=== PATIENT | female | born 1975 | race Hispanic/Latino ===

== ENCOUNTER 2017-09-10 10:07 | Observation (INO) | payer BC ==
[~2017-09-10] VITALS: Ht 162.6 cm; Wt 143.6 kg
[~2017-09-10 10:07] MED LIST: LABETALOL HCL100 MG PO
[2017-09-10] MEDS ORDERED: MORPHINE SULFATE 2 MG/ML SYR IV STA ×3 (10:37→15:51)
[2017-09-10] MEDS ORDERED: ONDANSETRON HCL INJ 2 MG/ML VIAL IV STA ×3 (10:37→16:01)
[2017-09-10] MEDS ORDERED: MULTIVITAMINS- 12 INJECTION 10 ML, FOLIC ACID MDV 5 MG, THIAMINE HCL INJ 500 MG in SODI... IV ONE (10:45)
[2017-09-10] MEDS ORDERED: DIATRIZOATE MEGL/DIATRIZOA SOD 30 ML BTL PO ONE (11:22)
[2017-09-10] MEDS ORDERED: MULTIVITAMINS- 12 INJECTION 10 ML, FOLIC ACID MDV 5 MG, THIAMINE HCL INJ 100 MG in SODI... IV ONE (11:30)
[2017-09-10 11:44] LABS: BASOPHILS % 0.4 % (0.0-1.0); EOSINOPHILS # (AUTO) 0.1 (0.0-0.4); EOSINOPHILS % 1.4 % (0.0-6.0); HEMATOCRIT 39.1 % (34.2-44.1); HEMOGLOBIN 12.5 g/dL (12.0-16.0); LYMPHOCYTES % 19.7 % (18.0-39.1); MEAN CORPUSCULAR HEMOGLOBIN 25.7 pg (28-32); MEAN CORPUSCULAR VOLUME 80.3 fL (81-99); MONOCYTES # (AUTO) 0.4 (0.2-0.8); MONOCYTES % 7.8 % (4.4-11.3); NEUTROPHILS # (AUTO) 3.5 (2.1-6.9); NEUTROPHILS % 70.3 % (38.7-80.0); PLATELET COUNT 234 x10e3/uL (140-360); RED BLOOD COUNT 4.87 x10e6/uL (3.6-5.1); RED CELL DISTRIBUTION WIDTH 14.4 % (11.7-14.4)
[2017-09-10 11:55] LABS: INR 1.06
[2017-09-10 12:03] LABS: ALANINE AMINOTRANSFERASE 21 IU/L (0-55); ALBUMIN 3.8 g/dL (3.5-5.0); ALKALINE PHOSPHATASE 76 IU/L (40-150); AMYLASE 22 U/L (25-125); ANION GAP 14.8 mmol/L (8-16); BLOOD UREA NITROGEN 8 mg/dL (7-26); BUN/CREATININE RATIO 13 (6-25); CALCIUM 8.8 mg/dL (8.4-10.2); CARBON DIOXIDE 23 mmol/L (22-29); CHLORIDE 101 mmol/L (98-107); CREATININE, SERUM 0.61 mg/dL (0.57-1.11); EST GLOMERULAR FILTRATION RATE > 60 ML/MIN (60-); GLUCOSE 160 mg/dL (74-118); LIPASE 19 U/L (8-78); POTASSIUM 3.8 mmol/L (3.5-5.1); SODIUM 135 mmol/L (136-145)
[2017-09-10 12:44] LABS: BILIRUBIN,URINE NEGATIVE (NEGATIVE); CLARITY,URINE CLEAR (CLEAR); COLOR,URINE YELLOW (YELLOW); KETONES,URINE NEGATIVE (NEGATIVE); LEUKOCYTE ESTERASE ,URINE 1+ (NEGATIVE); NITRITE,URINE NEGATIVE (NEGATIVE); PROTEIN,URINE DIPSTICK NEGATIVE (NEGATIVE); URINE UROBILINOGEN 0.2 mg/dL (0.2 - 1)
[2017-09-10 13:03] LABS: BACTERIA,URINE RARE /HPF; WBC,URINE (MAN) 0-5 /HPF (0-5)
[2017-09-10 13:04] LABS: EPITHELIAL CELLS,URINE FEW /LPF; TRICHOMONAS,URINE FEW
[2017-09-10] MEDS ORDERED: SODIUM CHLORIDE 0.9% 50ML 50 ML ONE (14:55)
[2017-09-10] MEDS ORDERED: IOPAMIDOL 370 MG/ML 200 ML INFUS..BTL INJ ONE (14:57)
--- NOTE | 2017-09-10 15:15 | Diagnostic Imaging Report ---
PROCEDURE:CT ABDOMEN AND PELVIS WITH CONTRAST COMPARISON:None. INDICATIONS:ABDOMEN PAIN, VOMITING TECHNIQUE: Multidetector CT scanning of the abdomen and pelvis was performed after the administration of 100 cc of nonionic contrast. Coronal and sagittal reformations were obtained. Routine protocol performed. DLP: 1253.88 mGY-cm FINDINGS: Lung bases: A mild air trapping. No consolidation or mass. Visualized portion of the mediastinum is normal. Liver: Mildly decreased in attenuation without mass. Biliary: Gallbladder is absent. No biliary ductal dilatation. Spleen: Normal in size and attenuation without mass. Pancreas: Mild fatty atrophy. No mass or ductal dilatation. Adrenal Glands: No mass. Kidneys: Symmetric enhancement. No mass or hydronephrosis. Gastrointestinal: There postoperative changes of the stomach suggestive of bariatric surgery. The stomach is collapsed. Small bowel is normal in diameter with normal wall thickness. There is enteric contrast in the distal small bowel and large bowel. There a few diverticula in the descending colon without associated inflammation. A supraumbilical hernia has an aperture of 3 cm and contains a knuckle of transverse colon that is distended with air. There is also fat within this hernia. There is no fluid in the hernia sac. The appendix is opacified with enteric contrast and is normal. Vasculature: Aorta and IVC are normal in diameter. Peritoneum/Retroperitoneum: No free fluid, fluid collection, or free air. Bladder: Normal. Reproductive organs: The uterus is present and normal in morphology. There are multiple nabothian cysts in the cervix. There are no adnexal masses. Lymph nodes: No enlarged abdominal, pelvic, or inguinal lymph nodes. Musculoskeletal: There are no focal osseous lesions. Mild degenerative changes of the thoracolumbar spine are present. Soft tissues: Fat-containing umbilical hernia has an aperture a 17 mm. A fat containing hernia in the lower intra-abdominal wall may be incisional and has an aperture 16 mm. No fluid in the hernia sacs. IMPRESSION: 1. Ventral supraumbilical hernia containing fat and transverse colon. There is no evidence of incarceration or bowel obstruction. 2. Postoperative changes of the stomach without complication. 3. Mild hepatic steatosis. Pancreas lipomatosis. 4. Cholecystectomy. Normal biliary tree. 5. Diverticulosis coli. No bowel inflammation. Normal appendix. Dictated by: Lupe Savage M.D. on 09/10/2017 at 15:14 Electronically approved by: Lupe Savage M.D. on 09/10/2017 at 15:14
[2017-09-10] MEDS ORDERED: AZITHROMYCIN 250 MG TAB PO STA (16:01)
[2017-09-10] MEDS ORDERED: CEFTRIAXONE SOD 1 GM VIAL IM ONE (16:15)
[2017-09-10] MEDS ORDERED: METRONIDAZOLE 500 MG TAB PO NR (16:30)
[2017-09-10] MEDS: METRONIDAZOLE 250 MG TAB PO ONE ×2 (16:34→16:41)
[2017-09-10] MEDS ORDERED: HYDROCHLOROTHIA25 MG PO (17:52)
[2017-09-10] MEDS ORDERED: CITALOPRAM HBR20 MG PO (17:52)
--- OUTSIDE RECORDS SUMMARY | 2017-09-10 18:56 | XMS REPORT ---
Author Author [facility] Address Unknown Phone Unavailable Care Team Providers Care Maintenance Electrician Name Role Phone SHYLA PEÑA Unavailable Unavailable Problems This patient has no known problems. Allergies, Adverse Reactions, Alerts This patient has no known allergies or adverse reactions. Medications This patient has no known medications. Results Test Description Test Time Test Comments Text Results Atomic Results Result Comments CT ABDOMEN/PELVIS W [place] [address] Patient Name: OMARI WARNER MR #: [id number] : 1975 Age/Sex: 42/F Req #: [id number] Adm Physician: Ordered by: ANGELIA HILL ROR ENGINEER Report #: [id number] Location: ER Room/Bed: Procedure: [id number] CT/CT ABDOMEN/PELVIS W Exam Date: 09/10/17 Exam Time: 1425 REPORT STATUS: Signed PROCEDURE: CT ABDOMEN AND PELVIS WITH CONTRAST COMPARISON: None. INDICATIONS: ABDOMEN PAIN, VOMITING TECHNIQUE: Multidetector CT scanning of the abdomen and pelvis was performed after the administration of 100 cc of nonionic contrast. Coronal and sagittal reformations were obtained. Routine protocol performed. DLP: 1253.88 mGY-cm FINDINGS: Lung bases: A mild air trapping. No consolidation or mass. Visualized portion of the mediastinum is normal. Liver: Mildly decreased in attenuation without mass. Biliary: Gallbladder is absent. No biliary ductal dilatation. Spleen: Normal in size and attenuation without mass. Pancreas: Mild fatty atrophy. No mass or ductal dilatation. Adrenal Glands: No mass. Kidneys: Symmetric enhancement. No mass or hydronephrosis. Gastrointestinal: There postoperative changes of the stomach suggestive of bariatric surgery. The stomach is collapsed. Small bowel is normal in diameter with normal wall thickness. There is enteric contrast in the distal small bowel and large bowel. There a few diverticula in the descending colon without associated inflammation. A supraumbilical hernia has an aperture of 3 cm and contains a knuckle of transverse colon that is distended with air. There is also fat within this hernia. There is no fluid in the hernia sac. The appendix is opacified with enteric contrast and is normal. Vasculature: Aorta and IVC are normal in diameter. Peritoneum/ Retroperitoneum: No free fluid, fluid collection, or free air. Bladder : Normal. Reproductive organs: The uterus is present and normal in morphology. There are multiple nabothian cysts in the cervix. There are no adnexal masses. Lymph nodes: No enlarged abdominal, pelvic, or inguinal lymph nodes. Musculoskeletal: There are no focal osseous lesions. Mild degenerative changes of the thoracolumbar spine are present. Soft tissues: Fat-containing umbilical hernia has an aperture a 17 mm. A fat containing hernia in the lower intra-abdominal wall may be incisional and has an aperture 16 mm. No fluid in the hernia sacs. IMPRESSION: 1. Ventral supraumbilical hernia containing fat and transverse colon. There is no evidence of incarceration or bowel obstruction. 2. Postoperative changes of the stomach without complication. 3. Mild hepatic steatosis. Pancreas lipomatosis. 4. Cholecystectomy. Normal biliary tree. 5. Diverticulosis coli. No bowel inflammation. Normal appendix. Dictated by: Durga Savage M.D. on 09/10/2017 at 15:14 Electronically approved by: Durga Savage M.D. on 09/10/2017 at 15:14 Dictated By: DURGA SAVAGE MD [id number] Transcribed By: CHRISTIAN on 09/10/17 1514 COPY TO: ANGELIA HILL NP
[2017-09-10] MEDS: SODIUM CHLORIDE 0.9% 1000ML 1,000 ML IV SCH ×2 (19:14→20:40)
[2017-09-10 20:30] VITALS: BP 134/60
[2017-09-10] MEDS: MORPHINE SULFATE 2 MG/ML SYR IV PRN (20:40)
[2017-09-10] MEDS: ONDANSETRON HCL INJ 2 MG/ML VIAL IV PRN (20:40)
[2017-09-10 21:00] VITALS: BP 134/60
[2017-09-11] VITALS: BP 142/66
[2017-09-11] MEDS ORDERED: METRONIDAZOLE 500MG/NS 100ML IV SCH
[2017-09-11] MEDS: METRONIDAZOLE 500MG/NS 100ML 100 ML IV SCH ×4 (00:13→17:49)
[2017-09-11] MEDS: ONDANSETRON HCL INJ 2 MG/ML VIAL IV PRN ×5 (00:40→19:41)
[2017-09-11] MEDS: MORPHINE SULFATE 2 MG/ML SYR IV PRN ×5 (00:40→19:40)
[2017-09-11] MEDS: SODIUM CHLORIDE 0.9% 1000ML 1,000 ML IV SCH ×4 (01:20→20:10)
[2017-09-11 04:00] VITALS: BP 134/62
[2017-09-11 06:41] LABS: BASOPHILS % 0.4 % (0.0-1.0); EOSINOPHILS % 1.4 % (0.0-6.0); HEMATOCRIT 33.9 % (34.2-44.1); HEMOGLOBIN 10.8 g/dL (12.0-16.0); LYMPHOCYTES % 34.6 % (18.0-39.1); MEAN CORPUSCULAR HEMOGLOBIN 25.7 pg (28-32); MEAN CORPUSCULAR HGB CONC 31.9 g/dL (31-35); MEAN CORPUSCULAR VOLUME 80.7 fL (81-99); MONOCYTES # (AUTO) 0.5 (0.2-0.8); MONOCYTES % 16.8 % (4.4-11.3); NEUTROPHILS # (AUTO) 1.3 (2.1-6.9); NEUTROPHILS % 46.4 % (38.7-80.0); PLATELET COUNT 179 x10e3/uL (140-360); RED CELL DISTRIBUTION WIDTH 14.4 % (11.7-14.4)
[2017-09-11 07:08] LABS: ALANINE AMINOTRANSFERASE 23 IU/L (0-55); ALKALINE PHOSPHATASE 86 IU/L (40-150); ANION GAP 11.7 mmol/L (8-16); BLOOD UREA NITROGEN 6 mg/dL (7-26); BUN/CREATININE RATIO 11 (6-25); CALCIUM 8.1 mg/dL (8.4-10.2); CARBON DIOXIDE 23 mmol/L (22-29); CHLORIDE 106 mmol/L (98-107); CREATININE, SERUM 0.57 mg/dL (0.57-1.11); EST GLOMERULAR FILTRATION RATE > 60 ML/MIN (60-); GLUCOSE 132 mg/dL (74-118); POTASSIUM 3.7 mmol/L (3.5-5.1); SODIUM 137 mmol/L (136-145)
[2017-09-11] MEDS: PANTOPRAZOLE 40 MG 10ML VIAL IV SCH (08:45)
[2017-09-11 09:05] VITALS: BP 118/60
[2017-09-11 12:00] VITALS: BP 129/63
[2017-09-11 15:34] VITALS: BP 124/58
[2017-09-11] MEDS: CEFTRIAXONE SOD 1 GM VIAL IV SCH (16:24)
[2017-09-11] MEDS: ACETAMINOPHEN 1000 MG/100 ML IV PRN (19:40)
[2017-09-11 20:00] VITALS: BP 118/55
[2017-09-12] VITALS (7 sets, daily range): BP systolic 109–138; BP diastolic 56–65
[2017-09-12] MEDS: METRONIDAZOLE 500MG/NS 100ML 100 ML IV SCH ×4 (01:00→17:27)
[2017-09-12] MEDS: SODIUM CHLORIDE 0.9% 1000ML 1,000 ML IV SCH ×4 (04:00→17:27)
[2017-09-12] MEDS: ONDANSETRON HCL INJ 2 MG/ML VIAL IV PRN (04:26)
[2017-09-12] MEDS: ACETAMINOPHEN 1000 MG/100 ML IV PRN ×2 (04:26→23:30)
[2017-09-12] MEDS: PANTOPRAZOLE 40 MG 10ML VIAL IV SCH (08:35)
[2017-09-12] MEDS: CEFTRIAXONE SOD 1 GM VIAL IV SCH (17:27)
[2017-09-13] VITALS (8 sets, daily range): BP systolic 118–142; BP diastolic 60–79
[2017-09-13] MEDS: METRONIDAZOLE 500MG/NS 100ML 100 ML IV SCH ×2 (05:37)
[2017-09-13] MEDS: SODIUM CHLORIDE 0.9% 1000ML 1,000 ML IV SCH ×4 (06:34→20:34)
[2017-09-13] MEDS: PANTOPRAZOLE 40 MG 10ML VIAL IV SCH (07:54)
[2017-09-13] MEDS: ACETAMINOPHEN 1000 MG/100 ML IV PRN (07:54)
[2017-09-13] MEDS: ONDANSETRON HCL INJ 2 MG/ML VIAL IV PRN ×2 (09:56→22:40)
[2017-09-13] MEDS: CEFTRIAXONE SOD 1 GM VIAL IV SCH (15:58)
[2017-09-13] MEDS: HYDROMORPHONE 2MG/ML INJ IV PRN ×2 (15:58→22:45)
[2017-09-14] VITALS: BP 120/59
[2017-09-14] MEDS: SODIUM CHLORIDE 0.9% 1000ML 1,000 ML IV SCH ×2 (02:40→08:07)
[2017-09-14 04:00] VITALS: BP 143/67
[2017-09-14] MEDS: PANTOPRAZOLE 40 MG 10ML VIAL IV SCH (08:07)
[2017-09-14 08:22] VITALS: BP 139/80
[2017-09-14 09:32] VITALS: BP 139/80
[2017-09-14 09:34] LABS: BASOPHILS % 0.2 % (0.0-1.0); EOSINOPHILS # (AUTO) 0.1 (0.0-0.4); EOSINOPHILS % 3.4 % (0.0-6.0); HEMATOCRIT 32.3 % (34.2-44.1); HEMOGLOBIN 10.6 g/dL (12.0-16.0); LYMPHOCYTES # (AUTO) 1.6 (1.0-3.2); LYMPHOCYTES % 39.3 % (18.0-39.1); MEAN CORPUSCULAR HEMOGLOBIN 26.1 pg (28-32); MEAN CORPUSCULAR HGB CONC 32.8 g/dL (31-35); MEAN CORPUSCULAR VOLUME 79.6 fL (81-99); MONOCYTES # (AUTO) 0.3 (0.2-0.8); MONOCYTES % 8.3 % (4.4-11.3); NEUTROPHILS % 48.6 % (38.7-80.0); PLATELET COUNT 204 x10e3/uL (140-360); RED BLOOD COUNT 4.06 x10e6/uL (3.6-5.1); RED CELL DISTRIBUTION WIDTH 14.5 % (11.7-14.4)
[2017-09-14 09:56] LABS: ALANINE AMINOTRANSFERASE 17 IU/L (0-55); ALBUMIN/GLOBULIN RATIO 1.1 (0.8-2.0); ALKALINE PHOSPHATASE 71 IU/L (40-150); ANION GAP 9.3 mmol/L (8-16); BLOOD UREA NITROGEN < 5 mg/dL (7-26); CALCIUM 7.8 mg/dL (8.4-10.2); CARBON DIOXIDE 26 mmol/L (22-29); CHLORIDE 109 mmol/L (98-107); CREATININE, SERUM 0.52 mg/dL (0.57-1.11); EST GLOMERULAR FILTRATION RATE > 60 ML/MIN (60-); GLUCOSE 110 mg/dL (74-118); POTASSIUM 3.3 mmol/L (3.5-5.1); SODIUM 141 mmol/L (136-145)
[2017-09-14 10:06] LABS: BUN/CREATININE RATIO 10 (6-25)
[2017-09-14] MEDS: LOPERAMIDE HCL 2 MG CAP PO PRN ×2 (10:16→11:52)
[2017-09-14] MEDS ORDERED: DICYCLOMINE HCL20 MG PO (11:27)
[2017-09-14 12:07] VITALS: BP 107/62
== END 2017-09-14 12:22 | disposition home or self-care (01) ==
LOC: ER 10:07 → EDSEX 10:07 → ERHOLD 18:53 → MED/SURG 19:53
PROVIDERS: ADMIT Surgery; ATTEND Surgery
DX: K43.6 Other and unspecified ventral hernia with obstruction, without gangrene (principal); E66.01 Morbid (severe) obesity due to excess calories; Z98.84 Bariatric surgery status; Z68.43 Body mass index [BMI] 50.0-59.9, adult; F32.9 Major depressive disorder, single episode, unspecified
CPT/HCPCS: 36415 ×3; 74177; 80053 ×3; 81001; 82150; 83605; 83690; 84702; 85025 ×3; 85610; 87045; 87086; 87177; 87493; 99284; G0378 ×5; J0696 ×4; J1170; J2270 ×2; J2405 ×4; J3411; J7030 ×5; Q9967

== ENCOUNTER 2017-10-03 09:41 | Observation (INO) | payer BC ==
[~2017-10-03] VITALS: Ht 162.6 cm; Wt 143.3 kg
[~2017-10-03 09:41] MED LIST changes: +CITALOPRAM HBR20 MG PO; +DICYCLOMINE HCL20 MG PO; +HYDROCHLOROTHIA25 MG PO
--- OUTSIDE RECORDS SUMMARY | 2017-10-03 09:43 | XMS REPORT | Continuity of Care Document ---
Author Author [facility] Organization [facility] Address [address] [place] [address] Phone Unavailable Care Team Providers Care Girls Swimming Coach Name Role Phone MONICO CAPPS PCP Insurance Providers Guarantor Omari Banuelos Address [address] [address] [facility] Policy Number [id number] Subscriber's Name Omari Banuelos Relationship 18 Self / Same As Patient Group Number [id number] Group Name [employer] Effective Date 15 Advance Directives Directive Response Recorded Date/Time Does the patient have an advance directive? No 09/10/17 9:00pm If yes, is advance directive on file with [facility]? No 09/08/14 1:33pm If not on file with [facility] will patient provide a copy? No 09/08/14 1:33pm Do you have a Directive to Physician? No 09/10/17 10:26am Do you have a Medical Power of College Recruiter? No 09/10/17 10:26am Do you have an out of hospital Do Not Resuscitate Order? No 09/10/17 10:26am Do you have any special needs we should be aware of? No 09/10/17 10:26am Do you have a support person here with you today? No 09/10/17 10:26am Did patient receive Notice of Privacy Practices? Yes 09/10/17 10:26am Did patient receive patient rights and responsibilities? Yes 09/10/17 10:26am Problems Medical Problem Onset Date Status Abdominal pain Unknown Nausea vomiting and diarrhea Unknown Trichomonas infection Unknown Ventral hernia Unknown Medications Current Home Medications Medication Dose Units Route Directions Days Qty Instructions Start Date Citalopram Hydrobromide (Citalopram Hbr) 20 Mg Tablet 20 Mg Oral Daily Dicyclomine Hcl 20 Mg Tablet 20 Mg Oral Every 6 Hours as needed for Abdominal Pain Hydrochlorothiazide 25 Mg Tablet 25 Mg Oral Daily 30 Tab Labetalol Hcl 100 Mg Tablet 100 Mg Oral Twice A Day 30 Tab Social History Social History Problem Response Recorded Date/Time Onset Date Status Hx Psychiatric Problems Yes 09/10/2017 9:00pm Not Applicable Not Applicable Hx Depression Yes 09/10/2017 9:00pm Not Applicable Not Applicable Smoking Status Start Date Stop Date Never Smoker Hospital Discharge Instructions No hospital discharge instruction information available. Plan of Care Discharge Date 09/14/17 12:22pm Disposition HOME, SELF-CARE Instructions/Education Provided Abdominal Pain - Adult Food Poisoning - Adult Prescriptions See Medication Section Referrals CHAN ESPINAL MD (Surgery) Order Date: 5-7 Days Entered Date: 09/14/2017 10:43am Address: [address] [place] [id number] Additional Instructions/Education SOFT BLAND DIET TAKE IMODIUM OVER THE COUNTER IF DIARRHEA CONTINUES F/U WITH PCP IN 1-2 DAYS FOR A FOLLOW UP ACTIVITY TOLERATED Functional Status Query Response Date Recorded Assistive Devices None September 10, 2017 9:00pm Ambulation Ability Independent September 10, 2017 9:00pm Toileting Ability Independent September 13, 2017 11:45am Allergies, Adverse Reactions, Alerts No known allergies. Immunizations No immunization information available. Vital Signs Acute Vital Signs Vital Response Date/Time Temperature (Fahrenheit) 97.9 degrees F (97.6 - 99.5) 09/14/2017 12:07pm Pulse Pulse Rate (adult) 63 bpm (60 - 90) 09/14/2017 12:07pm Respiratory Rate 16 bpm (12 - 24) 09/14/2017 12:07pm Blood Pressure 107/62 mm Hg 09/14/2017 12:07pm Height 5 ft 4 in 09/10/2017 10:25am Weight 316.56 lb 09/14/2017 8:23am Body Mass Index 54.3 kg/m^2 09/14/2017 8:23am Results Laboratory Results Test Name Result Units Flags Reference Collection Date/Time Result Date/ Time Comments White Blood Count 4.12 x10e3/uL L 4.8-10.8 09/14/2017 9:10a09/14/2017 9:37am Red Blood Count 4.06 x10e6/uL 3.6-5.1 09/14/2017 9:10a09/14/2017 9: 37am Hemoglobin 10.6 g/dL L 12.0-16.0 09/14/2017 9:09/14/2017 9:37am Hematocrit 32.3 % L 34.2-44.1 09/14/2017 9:09/14/2017 9:37am Mean Corpuscular Volume 79.6 fL L 81-99 09/14/2017 9:09/14/2017 9: 37am Mean Corpuscular Hemoglobin 26.1 pg L 28-32 09/14/2017 9:2017 9:37am Mean Corpuscular Hemoglobin Concent 32.8 g/dL 31-35 09/14/2017 9:09/14/2017 9:37am Red Cell Distribution Width 14.5 % H 11.7-14.4 09/14/2017 9:2017 9:37am Platelet Count 204 x10e3/uL 140-360 09/14/2017 9:09/14/2017 9: 37am Neutrophils (%) (Auto) 48.6 % 38.7-80.0 09/14/2017 9:10a09/14/2017 9: 37am Lymphocytes (%) (Auto) 39.3 % H 18.0-39.1 09/14/2017 9:09/14/2017 9 :37am Monocytes (%) (Auto) 8.3 % 4.4-11.3 09/14/2017 9:09/14/2017 9: 37am Eosinophils (%) (Auto) 3.4 % 0.0-6.0 09/14/2017 9:09/14/2017 9: 37am Basophils (%) (Auto) 0.2 % 0.0-1.0 09/14/2017 9:09/14/2017 9:37am IM GRANULOCYTES % 0.2 % 0.0-1.0 09/14/2017 9:09/14/2017 9:37am Neutrophils # (Auto) 2.0 L 2.1-6.9 09/14/2017 9:09/14/2017 9: 37am Lymphocytes # (Auto) 1.6 1.0-3.2 09/14/2017 9:09/14/2017 9:37am Monocytes # (Auto) 0.3 0.2-0.8 09/14/2017 9:09/14/2017 9:37am Eosinophils # (Auto) 0.1 0.0-0.4 09/14/2017 9:09/14/2017 9:37am Basophils # (Auto) 0.0 0.0-0.1 09/14/2017 9:09/14/2017 9:37am Absolute Immature Granulocyte (auto 0.01 x10e3/uL 0-0.1 09/14/2017 9: 09/14/2017 9:37am Prothrombin Time 13.0 seconds 11.9-14.5 09/10/2017 11:20am 09/10/2017 11:57am Prothromb Time International Ratio 1.06 09/10/2017 11:20am 2017 11:57am Oral Anticoagulant Therapy INR Values: 1. Low Intensity Therapy 1.5 - 2.0 2. Moderate Intensity Therapy 2.0 - 3.0 3. High Intensity Therapy(1) 2.5 - 3.5 4. High Intensity Therapy(2) 3.0 - 4.0 5. Panic Value INR > 5.0 Urine Color YELLOW YELLOW 09/10/2017 10:35am 09/10/2017 12:47pm Urine Clarity CLEAR CLEAR 09/10/2017 10:35am 09/10/2017 12:47pm Urine Specific [place] 1.015 1.010-1.025 09/10/2017 10:35am 2017 12:47pm Urine pH 6 5 - 7 09/10/2017 10:35am 09/10/2017 12:47pm Urine Leukocyte Esterase 1+ H NEGATIVE 09/10/2017 10:35am 09/10/2017 12:47pm Urine Nitrite NEGATIVE NEGATIVE 09/10/2017 10:35am 09/10/2017 12: 47pm Urine Protein NEGATIVE NEGATIVE 09/10/2017 10:35am 09/10/2017 12: 47pm Urine Glucose (UA) NEGATIVE NEGATIVE 09/10/2017 10:35am 09/10/2017 12 :47pm Urine Ketones NEGATIVE NEGATIVE 09/10/2017 10:35am 09/10/2017 12: 47pm Urine Urobilinogen 0.2 mg/dL 0.2 - 1 09/10/2017 10:35am 09/10/2017 12: 47pm Urine Bilirubin NEGATIVE NEGATIVE 09/10/2017 10:35am 09/10/2017 12: 47pm Urine Blood NEGATIVE NEGATIVE 09/10/2017 10:35am 09/10/2017 12:47pm Urine WBC 0-5 /HPF 0-5 09/10/2017 10:35am 09/10/2017 1:04pm Urine RBC NONE /HPF 0-5 09/10/2017 10:35am 09/10/2017 1:04pm Urine Bacteria RARE /HPF NONE 09/10/2017 10:35am 09/10/2017 1:04pm Urine Epithelial Cells FEW /LPF NONE 09/10/2017 10:35am 09/10/2017 1: 04pm Urine Trichomonas FEW H NONE 09/10/2017 10:35am 09/10/2017 1:04pm Sodium Level 141 mmol/L 136-145 09/14/2017 9:10am 09/14/2017 10:06am Potassium Level 3.3 mmol/L L 3.5-5.1 09/14/2017 9:10am 09/14/2017 10: 06am Chloride Level 109 mmol/L H 98-107 09/14/2017 9:10am 09/14/2017 10:06am Carbon Dioxide Level 26 mmol/L 22-29 09/14/2017 9:09/14/2017 10: 06am Anion Gap 9.3 mmol/L 8-16 09/14/2017 9:09/14/2017 10:06am Blood Urea Nitrogen < 5 mg/dL L 7-09/14/2017 9:09/14/2017 10: 06am Creatinine 0.52 mg/dL L 0.57-1.11 09/14/2017 9:09/14/2017 10:06am BUN/Creatinine Ratio 10 01-1209/14/2017 9:09/14/2017 10:06am Estimat Glomerular Filtration Rate > 60 ML/MIN 6009/14/2017 9: 10:06am Ranges were taken from the National Kidney Disease Education Program and the National Kid[employer] Foundation literature. Reference ranges: 60 or greater: Normal 16-59 (for 3 consecutive months): Chronic kidney disease 15 or less: Kidney failure Glucose Level 110 mg/dL 74-118 09/14/2017 9:09/14/2017 10:06am Calcium Level 7.8 mg/dL L 8.4-10.2 09/14/2017 9:09/14/2017 10:06am Lactic Acid Level 8.2 MG/DL 4.5-19.8 09/10/2017 4:45pm 09/10/2017 5: 10pm Total Bilirubin 0.3 mg/dL 0.2-1.2 09/14/2017 9:09/14/2017 10:06am Aspartate Amino Transf (AST/SGOT) 25 IU/L 5-34 09/14/2017 9:2017 10:06am Alanine Aminotransferase (ALT/SGPT) 17 IU/L 0-55 09/14/2017 9: 10:06am Total Protein 5.7 g/dL L 6.5-8.1 09/14/2017 9:09/14/2017 10:06am Albumin 3.0 g/dL L 3.5-5.0 09/14/2017 9:09/14/2017 10:06am Globulin 2.7 g/dL 2.3-3.5 09/14/2017 9:09/14/2017 10:06am Albumin/Globulin Ratio 1.1 0.8-2.0 09/14/2017 9:10am 09/14/2017 10: 06am Alkaline Phosphatase 71 IU/L 40-150 09/14/2017 9:10am 09/14/2017 10: 06am Amylase Level 22 U/L L 25-125 09/10/2017 11:20am 09/10/2017 12:08pm Lipase 19 U/L 8-78 09/10/2017 11:20am 09/10/2017 12:08pm Human Chorionic Gonadotropin, Qual NEGATIVE NEGATIVE 09/10/2017 11: 20am 09/10/2017 1:17pm Clostridium Difficile Toxin A & B NEGATIVE NEGATIVE 09/13/2017 1:27pm 09/13/2017 3:50pm Testing on stool aspirate specimens is outside aging room operator claims since specimen type not validated on this assay. Procedures Procedure Status Date Provider(s) Computed tomography of abdomen and pelvis with contrast Active 09/10/17 ANGELIA HILL PRINTER'S DEVIL Encounters Encounter Location Arrival/Admit Date Discharge/Depart Date Attending Provider Discharged Inpatient (obs) [facility] 09/10/17 6:53pm 12:22pm CHAN ESPINAL MD
[2017-10-03] MEDS ORDERED: BUPIVACAINE 0.25%/EPI 30ML SDV INJ ONE (10:58)
[2017-10-03] MEDS ORDERED: CEFAZOLIN SOD 1 GM/NS 50ML 50 ML IV SCH (14:00)
[2017-10-03] MEDS ORDERED: FENTANYL CITRATE/PF 100MCG/2 ML INJ ONE ×2 (14:15→18:18)
[2017-10-03] MEDS ORDERED: ONDANSETRON HCL INJ 2 MG/ML VIAL ONE ×2 (14:20→15:27)
[2017-10-03] MEDS ORDERED: DEXAMETHASONE SOD PHOS INJ 4 MG/ML VIAL ONE (14:20)
[2017-10-03] MEDS ORDERED: LIDOCAINE HCL 2% LOCAL INJ 5 ML SDV VIAL INJ ONE (14:20)
[2017-10-03] MEDS ORDERED: NEOSTIGMINE 5 MG/5ML SYR ONE (14:20)
[2017-10-03] MEDS ORDERED: ROCURONIUM BROMIDE 10 MG/ML 5ML VIAL ONE (14:20)
[2017-10-03] MEDS ORDERED: ACETAMINOPHEN 1000 MG/100 ML IV ONE (14:20)
[2017-10-03] MEDS ORDERED: GLYCOPYRROLATE INJ 1MG/ 5 ML SYR ONE (14:20)
[2017-10-03] MEDS ORDERED: KETOROLAC TROMETHAMINE 30 MG/ML VIAL ONE (14:20)
[2017-10-03] MEDS ORDERED: DESFLURANE 240 ML BTL INH ONE (14:20)
[2017-10-03] MEDS ORDERED: PROPOFOL IV EMULSION 10 MG/ML 20 ML VIAL ONE (14:20)
[2017-10-03] MEDS ORDERED: HYDROMORPHONE 1MG/1ML INJ ONE ×2 (14:27→14:54)
[2017-10-03] MEDS ORDERED: METOCLOPRAMIDE HCL 10 MG/2ML VIAL ONE (15:39)
--- NOTE | 2017-10-03 15:41 | Operative Report ---
DATE OF PROCEDURE: October 03, 2017 PREOPERATIVE DIAGNOSIS: Incarcerated ventral hernia. POSTOPERATIVE DIAGNOSIS: Incarcerated ventral hernia. OPERATION PERFORMED: Repair of incarcerated ventral hernia with Physiomesh. BOOM CRANE OPERATOR: GINA Rich. ANESTHESIA: General. COMPLICATIONS: None. ESTIMATED BLOOD LOSS: Minimal. DESCRIPTION OF PROCEDURE: With the patient lying in bed in the supine position, under good general endotracheal anesthesia, the abdomen was prepped with Betadine solution and draped in the usual manner. An upper midline incision was made over the bulging hernia, carried down into the subcutaneous tissue. Immediately, a large hernia sac was encountered. This was dissected all the way around with normal fascia all the way around. There was a 2nd small defect just above the repair. This was similarly dissected all the way around. The larger hernia sac was then opened, and there was some colon contained within it which was reduced back to the intra-abdominal cavity. The excess of the hernia sac was then ligated with 2-0 Vicryl and resected. The second hernia was similarly reduced back to the intra-abdominal cavity. After this was done, the abdomen was then inspected through the hernia sac, and all of the adhesions were taken down. A Physiomesh was then introduced into the intra-abdominal cavity and anchored in all 6 corners using #1 Prolene. After this was done, the mesh was further fixated with tacks, making sure that we had a good closure away from any bowel. After this was done, the hernia defect was then closed over the mesh using interrupted sutures of #0 Ethibond. The whole area was thoroughly irrigated. Perfect hemostasis was ascertained. The subcutaneous tissue was approximated with 2-0 Vicryl, and the skin was closed with clips. Dressing was applied. The sponge, lap and needle count was correct. Patient tolerated the procedure well and returned to the recovery room in stable condition. Job#: [id number]
[2017-10-03 16:20] VITALS: BP 127/61
[2017-10-03 16:37] VITALS: BP 127/61
[2017-10-03] MEDS: SODIUM CHLORIDE 0.9% 1000ML 1,000 ML IV SCH ×2 (16:55→20:48)
[2017-10-03] MEDS: LABETALOL HCL 100 MG TAB PO SCH (17:06)
[2017-10-03] MEDS: PANTOPRAZOLE 40 MG 10ML VIAL IV SCH (17:07)
[2017-10-03] MEDS: HYDROCODONE/APAP 7.5MG-325MG 1 EA TAB PO PRN ×2 (18:11→22:36)
[2017-10-03] MEDS ORDERED: MIDAZOLAM HCL 2 MG/2 ML VIAL ONE (18:18)
[2017-10-03] MEDS ORDERED: ONDANSETRON HCL INJ 2 MG/ML VIAL IV ONE (18:30)
[2017-10-03 19:50] VITALS: BP 134/67
[2017-10-03] MEDS: CEFAZOLIN SOD 1 GM VIAL IV SCH (20:48)
[2017-10-03] MEDS: HYDROMORPHONE 1MG/1ML INJ IV PRN (20:48)
[2017-10-03 23:40] VITALS: BP 130/66
[2017-10-04 00:37] VITALS: BP 130/66
[2017-10-04] MEDS: HYDROMORPHONE 1MG/1ML INJ IV PRN ×3 (01:54→11:30)
[2017-10-04 04:50] VITALS: BP 125/59
[2017-10-04] MEDS: CEFAZOLIN SOD 1 GM VIAL IV SCH (04:50)
[2017-10-04] MEDS: HYDROCODONE/APAP 7.5MG-325MG 1 EA TAB PO PRN ×2 (04:51→15:00)
[2017-10-04] MEDS ORDERED: ONDANSETRON HCL INJ 2 MG/ML VIAL IV PRN (07:45)
[2017-10-04 08:39] LABS: BASOPHILS % 0.2 % (0.0-1.0); EOSINOPHILS % 0.1 % (0.0-6.0); HEMATOCRIT 30.2 % (34.2-44.1); HEMOGLOBIN 9.9 g/dL (12.0-16.0); LYMPHOCYTES # (AUTO) 1.7 (1.0-3.2); LYMPHOCYTES % 21.3 % (18.0-39.1); MEAN CORPUSCULAR HEMOGLOBIN 25.7 pg (28-32); MEAN CORPUSCULAR HGB CONC 32.8 g/dL (31-35); MEAN CORPUSCULAR VOLUME 78.4 fL (81-99); MONOCYTES # (AUTO) 0.7 (0.2-0.8); NEUTROPHILS # (AUTO) 5.7 (2.1-6.9); NEUTROPHILS % 69.9 % (38.7-80.0); PLATELET COUNT 229 x10e3/uL (140-360); RED BLOOD COUNT 3.85 x10e6/uL (3.6-5.1); RED CELL DISTRIBUTION WIDTH 15.5 % (11.7-14.4)
[2017-10-04] MEDS: LABETALOL HCL 100 MG TAB PO SCH ×2 (08:41→16:02)
[2017-10-04 08:54] VITALS: BP 128/66
[2017-10-04 08:58] LABS: ANION GAP 9.8 mmol/L (8-16); BLOOD UREA NITROGEN 7 mg/dL (7-26); BUN/CREATININE RATIO 12 (6-25); CALCIUM 8.8 mg/dL (8.4-10.2); CARBON DIOXIDE 25 mmol/L (22-29); CHLORIDE 100 mmol/L (98-107); CREATININE, SERUM 0.57 mg/dL (0.57-1.11); EST GLOMERULAR FILTRATION RATE > 60 ML/MIN (60-); GLUCOSE 148 mg/dL (74-118); POTASSIUM 3.8 mmol/L (3.5-5.1); SODIUM 131 mmol/L (136-145)
[2017-10-04] MEDS ORDERED: HYDROCHLOROTHIAZIDE 25 MG TAB PO SCH (09:00)
[2017-10-04 11:30] VITALS: BP 126/61
[2017-10-04] MEDS: PANTOPRAZOLE 40 MG 10ML VIAL IV SCH (15:12)
[2017-10-04 15:38] VITALS: BP 118/63
[2017-10-04] MEDS: SODIUM CHLORIDE 0.9% 1000ML 1,000 ML IV SCH (16:19)
== END 2017-10-04 18:13 | disposition home or self-care (01) ==
LOC: OR 09:41 → MED/SURG 15:28 → IMCU 10-04 09:01
PROVIDERS: ADMIT Surgery; ATTEND Surgery
DX: K43.6 Other and unspecified ventral hernia with obstruction, without gangrene (principal); I10 Essential (primary) hypertension; E66.01 Morbid (severe) obesity due to excess calories; R00.1 Bradycardia, unspecified; Z01.810 Encounter for preprocedural cardiovascular examination
CPT/HCPCS: 36415 ×2; 49561; 49568; 80048; 81025; 84132; 85025; 88302; 93005; C1781; G0378 ×2; J0690 ×2; J1100; J1170 ×2; J1885; J2001; J2250; J2405 ×2; J2765; J7030 ×2